=== PATIENT | male | born 1955 | race Caucasian/White ===

== ENCOUNTER 2024-05-14 13:19 | Inpatient (IN) ==
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
[2024-05-14 14:28] LABS: Basophils # (auto) 0.04 K/uL (0.00-0.20); Basophils % (auto) 0.2 %; Hematocrit (blood only) 37.3 % (42.0-52.0); Hemoglobin 12.8 g/dl (14.0-18.0); Immature Granulocytes # (auto) 0.56 K/uL (0.01-0.20); Immature Granulocytes % (auto) 2.7 %; Lymphocytes # (auto) 0.69 K/uL (1.20-3.40); Lymphocytes % (auto) 3.4 %; Mean Corpuscular Hemoglobin 31.1 pg (25.0-34.0); Mean Corpuscular Hgb Conc 34.3 g/dL (32.0-36.0); Mean Corpuscular Volume 90.8 fL (80.0-100.0); Mean Platelet Volume 10.6 fL (9.4-12.4); Monocytes % (auto) 9.7 %; Neutrophils # (auto) 17.23 K/uL (1.40-6.50); Platelet Count 168 K/uL (130-400); RDW Coefficient of Variation 12.7 % (11.5-14.5); RDW Standard Deviation 42.1 fL (36.4-46.3); Red Blood Count 4.11 M/uL (4.70-6.10); White Blood Count 20.52 K/ul (4.8-10.8)
[2024-05-14] MEDS: ACETAMINOPHEN 500 MG TAB PO STA (14:28)
[2024-05-14] MEDS: SODIUM CHLORIDE 0.9% 1,000 ML IV SCH ×2 (14:30→19:08)
--- NOTE | 2024-05-14 14:38 | XRay Report ---
SINGLE VIEW CHEST CLINICAL HISTORY: Generalized weakness. FINDINGS: An AP, portable, upright chest radiograph is obtained. No prior studies are available for c omparison at the time of dictation. The heart is enlarged noting atherosclerotic calcification of the thoracic aorta. There is pulmonary vascular congestion. Atelectasis is seen at the lung bases. No ai rspace consolidation or large pleural effusion is identified. No pneumothorax is seen. The skeletal s tructures are osteopenic. The bony thorax is grossly intact. IMPRESSION: Cardiomegaly with mild pulmonary vascular congestion. ACT 112: Negative or not required by law. Electronically signed by: Julián Rivera M.D. 05/14/2024 2:36 PM
[2024-05-14 14:51] LABS: Albumin Globulin Ratio 1.3 (0.9-2); Albumin Level 3.9 gm/dl (3.4-5.0); BUN Creatinine Ratio 17.8 (10-20); Bilirubin,Total 1.1 mg/dl (0.2-1.0); Calcium 9.8 mg/dl (8.6-10.3); Creatinine Clr Calc Pharmacy 28.8 ml/min; Est GFR (African American) 26.6 ml/min; Magnesium 1.8 mg/dl (1.7-2.4); Potassium 4.1 mmol/L (3.5-5.1); Total Protein 6.9 gm/dl (6.0-8.3)
[2024-05-14 15:03] LABS: Thyroid Stimulating Hormone 1.02 uIu/ml (0.300-4.500)
[2024-05-14 15:10] LABS: Adenovirus PCR Not Detected (NotDetected); Bordetella parapertussis PCR Not Detected (NotDetected); Bordetella pertussis PCR Not Detected (NotDetected); Chlamydia pneumoniae PCR Not Detected (NotDetected); Coronavirus 229E PCR Not Detected (NotDetected); Coronavirus CoV-2 (COVID19)PCR Not Detected (NotDetected); Coronavirus HKU1 PCR Not Detected (NotDetected); Coronavirus NL63 PCR Not Detected (NotDetected); Coronavirus OC43PCR Not Detected (NotDetected); Human Metapneumovirus PCR Not Detected (NotDetected); Influenza A PCR Not Detected (NotDetected); Influenza B PCR Not Detected (NotDetected); Mycoplasma pneumoniae PCR Not Detected (NotDetected); Parainfluenza Virus 1 PCR Not Detected (NotDetected); Parainfluenza Virus 2 PCR Not Detected (NotDetected); Parainfluenza Virus 3 PCR Not Detected (NotDetected); Parainfluenza Virus 4 PCR Not Detected (NotDetected); Respiratory Syncytial VirusPCR Not Detected (NotDetected); Rhinovirus/Enterovirus PCR Not Detected (NotDetected)
[2024-05-14] MEDS: SODIUM CHLORIDE 0.9% 500 ML IV ONE (15:47)
[2024-05-14 15:49] LABS: Appearance Urine Turbid (Clear); Bacteria Urine Automated 4+ (None Seen); Bilirubin Urine Negative (Negative); Blood Urine 3+ (Negative); Cast Urine Automated >20 /lpf (0-2); Color Urine Dark Yellow; Glucose Urine UA Negative (Negative); Hyaline Casts Urine Present /lpf (None Presnt); Ketones Urine Trace (Negative); Leukocyte Esterase Urine 3+ (Negative); Nitrite Urine Negative (Negative); Protein Urine 2+ (Negative); Urobilinogen Urine Negative (Negative); WBC Urine Automated >50 /hpf (0-5); White Blood Cell Casts Urine Present /lpf (None Prsent)
[2024-05-14] MEDS: PIPERACILLIN/TAZOBACTAM 4.5 GM/100 ML BAG IV ONE (15:49)
--- NOTE | 2024-05-14 16:58 | Electrocardiogram Report ---
Test Reason : Blood Pressure : */* mmHG Vent. Rate : 78 BPM Atrial Rate : 78 BPM P-R Int : 160 ms QRS Dur : 94 ms QT Int : 392 ms P-R-T Axes : 87 -6 58 degrees QTcB Int : 446 ms Normal sinus rhythm Nonspecific T wave abnormality Abnormal ECG No previous ECGs available Confirmed by Reno Ibarra ([id number]) on 05/14/2024 4:58:18 PM Referred By: REFERRED SELF Confirmed By: Reno Ibarra
--- NOTE | 2024-05-14 16:58 | CT Scan Report ---
CT abd pelvis wo con CLINICAL HISTORY: BALDOMERO TECHNIQUE: Helical axial images of the abdomen and pelvis were obtained. Automated dose lowering tech niques and/or adjustment according to patient size were utilized for this exam. This exam was perfor med without intravenous contrast. CT DOSE: 1332.43 mGy.cm COMPARISON: Comparison is made to CT pelvis 05/22/[address] abdomen pelvis 05/22/2023 FINDINGS: Lower chest: Bibasilar atelectasis versus scarring is seen. Liver: Hepatic steatosis is noted. Gallbladder and biliary tree: The gallbladder is contracted. No intra- or extrahepatic biliary ductal dilation. Pancreas: Unremarkable, no focal lesions. Spleen: Unremarkable. Adrenals: Unremarkable. Kidneys and ureters: Bilateral renal cysts are seen. Perinephric stranding is seen. There is no hydro nephrosis. Bladder: Limited evaluation due to underdistention. Reproductive organs: Prostatomegaly is seen. Metallic markers are noted within the prostate. The appe ndix is unremarkable. Bowel: Unremarkable. Lymph nodes Retroperitoneal: Unremarkable. Pelvic: Unremarkable. Mesenteric: Unremarkable. Peritoneum: Normal. Vessels: Unremarkable. Abdominal wall: A fat-containing umbilical hernia is seen. Bilateral fat-containing inguinal hernias are seen. Bones: Degenerative changes in the visualized spine. Lucency in the T10 vertebral body is nonspecific and may represent a hemangioma, is unchanged from 202. IMPRESSION: 1. Perinephric stranding and stranding about the bladder. No evidence of hydronephrosis. Clinical co rrelation for infectious process is recommended. 2. Hepatic steatosis. ACT 112: Negative or not required by law. Electronically signed by: Luis Hudson M.D. 05/14/2024 4:56 PM
[2024-05-14] MEDS: SODIUM CHLORIDE 0.9% 1,000 ML IV ONE (17:09)
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
[2024-05-14] MEDS ORDERED: CARBOHYDRATES FOR HYPOGLYCEMIA PO PRN (18:02)
[2024-05-14] MEDS ORDERED: DEXTROSE 50% 50 ML SYRINGE IV PRN (18:02)
[2024-05-14] MEDS ORDERED: FLUTICASONE/VILANTEROL 100/25MCG 14 PUFFS/INHALER INH PRN (18:02)
[2024-05-14] MEDS ORDERED: GLUCOSE 40% GEL 15 GM TUBE PO PRN (18:02)
[2024-05-14] MEDS ORDERED: POLYETHYLENE (MIRALAX) 17 GM PACK PO PRN (18:02)
[2024-05-14] MEDS ORDERED: GLUCAGON FOR INJ 1 MG VIAL SQ PRN (18:02)
[2024-05-14] MEDS ORDERED: GLUCOSE 10 TAB/TUBE PO PRN (18:02)
[2024-05-14] MEDS ORDERED: ONDANSETRON INJ 2 MG/ML 2 ML VIAL IV PRN (18:02)
[2024-05-14] MEDS ORDERED: PHARMACY GLYCEMIC MGMT CONSULT PRN (18:02)
[2024-05-14] MEDS: LEVALBUTEROL HCL 0.63 MG/3 ML NEB NEB STA (18:22)
[2024-05-14] MEDS: SODIUM CHLORIDE 0.9% 250 ML IV ONE (18:23)
[2024-05-14] MEDS ORDERED: ALBUTEROL 0.083% NEBU SOLN 3 ML VIAL INH PRN (18:26)
[2024-05-14] MEDS: methylPREDNISolone 60 MG in SYRINGE 0 ML IV ONE (19:09)
[2024-05-14] MEDS: DAPTOmycin 450 MG in SYRINGE 0 ML IV SCH (19:09)
[2024-05-14] MEDS: LEVALBUTEROL HCL 0.63 MG/3 ML NEB NEB SCH (19:19)
[2024-05-14] MEDS: IPRATROPIUM BROMIDE NEB SOLN 0.02% 0.5MG/2.5ML VIAL NEB SCH (19:19)
[2024-05-14] MEDS: INSULIN ASPART PER UNIT CHARGE SC SCH (19:20)
[2024-05-14] MEDS: INSULIN ASPART PER UNIT CHARGE SC STA (19:25)
[2024-05-14] MEDS ORDERED: hydrALAZINE HCL 20 MG/ML VIAL IV PRN (19:46)
[2024-05-14] MEDS: PRAZOSIN HCL 1 MG CAP PO SCH (20:27)
[2024-05-14] MEDS: HEPARIN SOD 5,000 UNIT/0.5 ML VIAL SQ SCH (20:27)
[2024-05-14] MEDS: ACETAMINOPHEN 325 MG TAB PO PRN (20:27)
[2024-05-14] MEDS: CETIRIZINE HCL 10 MG TABLET PO SCH (20:27)
[2024-05-14] MEDS ORDERED: INSULIN ASPART PER UNIT CHARGE SC SCH (21:00)
[2024-05-14] MEDS: PIPERACILLIN/TAZOBACTAM 4.5 GM in DEXTROSE 5% MINI-B 100 ML IV SCH (22:45)
[2024-05-15] MEDS: methylPREDNISolone 40 MG in SYRINGE 0 ML IV SCH ×2 (02:00→20:25)
[2024-05-15 07:35] LABS: Basophils # (auto) 0.03 K/uL (0.00-0.20); Basophils % (auto) 0.2 %; Hematocrit (blood only) 34.6 % (42.0-52.0); Hemoglobin 11.8 g/dl (14.0-18.0); Immature Granulocytes # (auto) 0.64 K/uL (0.01-0.20); Immature Granulocytes % (auto) 3.8 %; Lymphocytes # (auto) 0.31 K/uL (1.20-3.40); Lymphocytes % (auto) 1.9 %; Mean Corpuscular Hemoglobin 31.1 pg (25.0-34.0); Mean Corpuscular Hgb Conc 34.1 g/dL (32.0-36.0); Mean Corpuscular Volume 91.1 fL (80.0-100.0); Mean Platelet Volume 10.7 fL (9.4-12.4); Monocytes # (auto) 0.73 K/uL (0.11-0.59); Monocytes % (auto) 4.4 %; Neutrophils # (auto) 15.02 K/uL (1.40-6.50); Neutrophils % (auto) 89.7 %; Platelet Count 125 K/uL (130-400); RDW Coefficient of Variation 12.7 % (11.5-14.5); RDW Standard Deviation 41.5 fL (36.4-46.3); White Blood Count 16.73 K/ul (4.8-10.8)
[2024-05-15] MEDS: allopurinoL 300 MG TAB PO SCH (07:58)
[2024-05-15] MEDS: CHOLECALCIFEROL 25 MCG (1000 UNITS) TAB PO SCH (07:58)
[2024-05-15] MEDS: FLUTICASONE/VILANTEROL 100/25MCG 14 PUFFS/INHALER INH SCH (07:59)
[2024-05-15] MEDS: VITAMIN B COMPLEX TAB PO SCH (07:59)
[2024-05-15 08:06] LABS: Estimated Average Glucose 157 mg/dl; Hemoglobin A1C 7.1 % (4.5-5.6)
--- NOTE | 2024-05-15 08:23 | Hospitalist Progress Note ---
Date of Service May 15, 2024 Assessment & Plan (1) UTI (urinary tract infection): (2) Severe sepsis: (3) Acute kidney injury: (4) Rhabdomyolysis: Plan Abdias Damon is a 68y/o M with PMHx significant for DM type II, HTN, hyperlipidemia, COPD, degenerative joint disease, BPH, history of prostate cancer, osteoarthritis and history of gout who presented to the ED for evaluation secondary to illness. Patient presenting with increasing weakness, fatigue, body aches/chills, fever and an episode of urinary continence over the past 24 hours. He was found to have an acute UTI and severe sepsis on presentation. Of note, patient had a left leg ablation performed on 05/13 at [facility]. Severe Sepsis Bacteremia Complicated Urinary tract Infection History of Prostate Cancer Meets severe sepsis criteria on admission 2/2 tachycardia, tachypnea, leukocytosis, present source of infection & lactic acidosis. Admitting labs significant for WBC 20K, lactate 3.3 and procalcitonin 72. UA suggestive of infection, urine Cx growing gram negative bacilli currently Blood Cx 1/2 bottles growing gram negative bacilli Biofire negative CXR showing cardiomegaly with mild pulmonary vascular congestion. CT Abd/pelvis showing perinephric stranding and stranding about the bladder, no evidence of hydronephrosis and hepatic steatosis. MRSA nares negative Continue IV Zosyn only at this time IV fluids Follow Cx and narrow Continue to monitor Shortness of Breath & Cough Asthma & Chronic Obstructive Pulmonary Disease with Exacerbation Patient w/ some SOB and nonproductive cough at time of admission. He was saturating well on RA at 94-98% SpO2 CXR no pneumonia Biofire negative Physical exam notable for some bilateral wheezing. Scheduled nebs and IV Solu-Medrol 40mg Q8H on admission Wean down steroids as tolerated Home inhalers Azithromycin 500mg x 3 doses Continue to monitor Acute Kidney Injury Cr 2.69 & BUN 48 on admission; baseline Cr ~1.0 IV Fluids Avoid nephrotoxic medications when able. Cr increasing Nephrology consulted, appreciate recs -IVF Rhabdomyolysis Patient presenting w/ body aches and weakness. He was also lying on the ground for 3-4 hours at home after sliding off of his bed. CK 262 on admission. IVF replacement Trend CK Continue to monitor Acute Hyperglycemia Diabetes Mellitus Type II [Not Insulin-Dependent] Glucose 322 and anion gap 12 on arrival. hgba1c of 7.1 Given 8 units of insulin aspart in the ED. Holding BILLING REPRESENTATIVE diabetic medications Basal/bolus insulin while hospitalized Glycemic pharmacy consult as pt also on steroids, appreciate recs Hyponatremia Noted on admission at 131 Consider urine osm and electrolytes for further workup Nephrology on board as above Anemia Thrombocytopenia Mild Continue to monitor Hypertension BP has been on the lower end on admission Given severe sepsis and concern for septic shock, hold BILLING REPRESENTATIVE antihypertensives Continue to monitor Dyslipidemia Patient on both statin and ASA therapy BILLING REPRESENTATIVE. Continue History of Prostate Cancer Patient underwent Rezum procedure on 03/31/2023 due to severe bladder outlet obstruction and subsequently completed treatment with radiation oncology. Patient finished radiation therapy in the fall of 2022. He follows closely w/ [facility]. Patient is currently under PSA monitoring regimen. Other Chronic Medical Conditions: History of gout, BPH and season allergies --> Can continue BILLING REPRESENTATIVE medications for these specific conditions. Diet: DMII DVT Prophylaxis: SQ Heparin Dispo: PT/OT ordered for further recs Admission and Anticipated Discharge Date Admission Date: May 14, 2024 Subjective pt was seen laying in bed. ill-appearing. States slight improvement in his symptoms. Feels very tired. Review of Systems Review of Systems: All systems reviewed & are unremarkable except as noted in Subjective Physical Exam Physical Exam: General: Alert, oriented. ill-appearing Psych: Appropriate mood and affect Neuro: No gross deficits HEENT: NC/AT CV: RRR Resp: Breath sounds clear bilaterally, no increased effort of breathing. Abdomen: Soft, nontender, nondistended. Extremities: Trace edema in lower extremities bilaterally. Results & Data Results & Data Vital Signs (Past 12 Hours) Vital Signs Temp Pulse Pulse Resp BP BP Pulse Ox 05/15/24 07:35 36.5 C 61 20 114/67 99 05/15/24 07:28 71 16 93 05/15/24 07:09 61 05/15/24 03:20 36.6 C 62 20 128/81 95 05/15/24 00:25 71 18 96 05/14/24 23:39 37.4 C 64 20 103/64 92 05/14/24 22:05 73 05/14/24 21:30 05/14/24 21:30 36.4 C L 77 22 114/63 95 05/14/24 21:20 77 O2 Del Method 05/15/24 07:35 Nebulizer 05/15/24 07:28 Room Air 05/15/24 07:09 05/15/24 03:20 Room Air 05/15/24 00:25 Room Air 05/14/24 23:39 Room Air 05/14/24 22:05 05/14/24 21:30 Room Air 05/14/24 21:30 Room Air 05/14/24 21:20 Diagnostic Findings Chest X-Ray 05/14/24 14:03 SINGLE VIEW CHEST CLINICAL HISTORY: Generalized weakness. FINDINGS: An AP, portable, upright chest radiograph is obtained. No prior studies are available for comparison at the time of dictation. The heart is en larged noting atherosclerotic calcification of the thoracic aorta. There is pulmonary vascular congestion. Atelectasis is seen at the lung bases. No airspace consolidation or large pleural effusion is identified. No pneumothorax is seen. The skeletal structures are osteopenic. The bony thorax is grossly intact. IMPRESSION: Cardiomegaly with mild pulmonary vascular congestion. ACT 112: Negative or not required by law. Electronically signed by: Julián Rivera M.D. 05/14/2024 2:36 PM Abdomen/Pelvis CT 05/14/24 15:38 CT abd pelvis wo con CLINICAL HISTORY: BALDOMERO TECHNIQUE: Helical axial images of the abdomen and pelvis were obtained. Automated dose lowering techniques and/or adjustment according to patient size were utilized for this exam. This exam was performed without intravenous contrast. CT DOSE: 1332.43 mGy.cm COMPARISON: Comparison is made to CT pelvis 05/22/[address] abdomen pelvis 05/22/2023 FINDINGS: Lower chest: Bibasilar atelectasis versus scarring is seen. Liver: Hepatic steatosis is noted. Gallbladder and biliary tree: The gallbladder is contracted. No intra- or extrahepatic biliary ductal dilation. Pancreas: Unremarkable, no focal lesions. Spleen: Unremarkable. Adrenals: Unremarkable. Kidneys and ureters: Bilateral renal cysts are seen. Perinephric stranding is seen. There is no hydronephrosis. Bladder: Limited evaluation due to underdistention. Reproductive organs: Prostatomegaly is seen. Metallic markers are noted within the prostate. The appendix is unremarkable. Bowel: Unremarkable. Lymph nodes Retroperitoneal: Unremarkable. Pelvic: Unremarkable. Mesenteric: Unremarkable. Peritoneum: Normal. Vessels: Unremarkable. Abdominal wall: A fat-containing umbilical hernia is seen. Bilateral fat- containing inguinal hernias are seen. Bones: Degenerative changes in the visualized spine. Lucency in the T10 vertebral body is nonspecific and may represent a hemangioma, is unchanged from 2021. IMPRESSION: 1. Perinephric stranding and stranding about the bladder. No evidence of hydronephrosis. Clinical correlation for infectious process is recommended. 2. Hepatic steatosis. ACT 112: Negative or not required by law. Electronically signed by: Luis Hudson M.D. 05/14/2024 4:56 PM (1) UTI (urinary tract infection) Hematuria presence: without hematuria Urinary tract infection type: site unspecified Qualified Code(s): N39.0 - Urinary tract infection, site not specified (4) Rhabdomyolysis Rhabdomyolysis type: non-traumatic Qualified Code(s): M62.82 - Rhabdomyolysis
[2024-05-15 08:29] LABS: Albumin Globulin Ratio 1.1 (0.9-2); Albumin Level 3.2 gm/dl (3.4-5.0); BUN Creatinine Ratio 19.7 (10-20); Bilirubin,Total 0.8 mg/dl (0.2-1.0); Calcium 8.4 mg/dl (8.6-10.3); Creatinine Clr Calc Pharmacy 28.1 ml/min; Est GFR (African American) 25.5 ml/min; Globulin 2.8 gm/dl (2.5-4.0); Magnesium 1.9 mg/dl (1.7-2.4); Phosphorus 3.6 mg/dl (2.5-4.9)
[2024-05-15] MEDS: LANTUS PER UNIT CHARGE SC ONE ×2 (09:22→12:04)
[2024-05-15] MEDS: ASPIRIN 81 MG ECTAB PO SCH (10:07)
[2024-05-15] MEDS: INSULIN HUMAN REGULAR PER UNIT 9 UNITS in SYRINGE 8.91 ML IV ONE (12:04)
[2024-05-15 12:39] LABS: A calco-baum cmplx NotReported Not Detected (NotDetected); Bact fragilis Not Reported Not Detected (NotDetected); Blood Culture Id Panel See PCR Comment (NotDetected); C auris Not Reported Not Detected (NotDetected); CTX-M Resistant Gene Not Detected (NotDetected); Calbicans Not Reported Not Detected (NotDetected); Candida glabrata Not Reported Not Detected (NotDetected); Candida krusei Not Reported Not Detected (NotDetected); Cneoformans/gatti Not Reported Not Detected (NotDetected); Cparapsilosis Not Reported Not Detected (NotDetected); E cloacae compx Not Reported Not Detected (NotDetected); Efaecalis Not Reported Not Detected (NotDetected); Efaecium Not Reported Not Detected (NotDetected); Enterobacterales DETECTED (NotDetected); Enterobacterales Not Reported DETECTED (NotDetected); Escherichia coli Not Reported DETECTED (NotDetected); H influenzae Not Reported Not Detected (NotDetected); IMP Resistant Gene Not Detected (NotDetected); K aerogenes Not Reported Not Detected (NotDetected); KPC Resistant Gene Not Detected (NotDetected); Koxytoca Not Reported Not Detected (NotDetected); Kpneumoniae grp Not Reported Not Detected (NotDetected); Lmonocyt Not Reported Not Detected (NotDetected); N meningitidis Not Reported Not Detected (NotDetected); NDM Resistant Gene Not Detected (NotDetected); OXA 48 Like Resistant Gene Not Detected (NotDetected); P aeruginosa Not Reported Not Detected (NotDetected); Proteus spp Not Reported Not Detected (NotDetected); Salmonella spp Not Reported Not Detected (NotDetected); Staph lugdunensis Not Reported Not Detected (NotDetected); Staph spp. Not Reported Not Detected (NotDetected); Staphaureus Not Reported Not Detected (NotDetected); Staphepi Not Reported Not Detected (NotDetected); Stenmaltophilia Not Reported Not Detected (NotDetected); Strep agal(GrpB) Not Reported Not Detected (NotDetected); Strep pneum Not Reported Not Detected (NotDetected); Strep pyog (GrpA) Not Reported Not Detected (NotDetected); Strep spp Not Reported Not Detected (NotDetected); VIM Resistant Gene Not Detected (NotDetected); mcr-1 Colistin Resistant Gene Not Detected (NotDetected)
--- NOTE | 2024-05-15 13:20 | Pharmacy Report ---
Pharmacy Glycemic Short Note 2 - Date of Service May 15, 2024 - Glycemic Short BSG Results (Last 24 hours): 05/14/24 05/14/24 05/14/24 13:47 19:14 21:24 Glucose 322 H* POC Glucose 210 H 162 H 05/15/24 05/15/24 05/15/24 07:18 08:00 08:01 Glucose 328 H* POC Glucose 358 H* 316 H* 05/15/24 05/15/24 11:35 11:36 Glucose POC Glucose 476 H* 452 H* OUTPATIENT ANTIDIABETIC REGIMEN: * Metformin 1000 mg PO BIDM * Repaglinide 0.5 mg PO TIDM HbA1c: 7.1% (12/17/22) ASSESSMENT: * WL is a 68 year old male with presumed urosepsis (receiving Zosyn) * Patient hyperglycemic today, likely related to uncovered IV steroid administration last evening * Ordered methylprednisolone 40 mg IV BID at this time * Will utilize weight-based basal and aggressive Novolog parameters * Blood sugar of 452 mg/dL at lunch -> will give one-time IV insulin bolus PLAN FOR INPATIENT GLYCEMIC CONTROL: * Hold outpatient oral diabetes medications * Basal insulin * Lantus 35 units SC today * Reassess in AM * Bolus insulin * NovoLog per scale ACHS or Q6hrs while NPO * Goal Range: Low 110 mg/dL - High 140 mg/dL * Correction Factor: 15 mg/dL/unit * Nutritional / Prandial insulin per carb ratio of 1 unit per 5 grams CHO consumed
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
[2024-05-15] MEDS: AZITHROMYCIN 250 MG TAB PO SCH (13:53)
[2024-05-15] MEDS: SODIUM CHLORIDE 0.9% 1,000 ML IV SCH (16:28)
[2024-05-15] MEDS: ROSUVASTATIN CALCIUM 10 MG TAB PO SCH (20:25)
[2024-05-16] MEDS: INSULIN ASPART PER UNIT CHARGE SC SCH (00:04)
[2024-05-16 07:22] LABS: Hematocrit (blood only) 33.4 % (42.0-52.0); Hemoglobin 11.8 g/dl (14.0-18.0); Mean Corpuscular Hemoglobin 31.1 pg (25.0-34.0); Mean Corpuscular Hgb Conc 35.3 g/dL (32.0-36.0); Mean Corpuscular Volume 88.1 fL (80.0-100.0); Mean Platelet Volume 11.3 fL (9.4-12.4); Platelet Count 160 K/uL (130-400); RDW Coefficient of Variation 12.5 % (11.5-14.5); RDW Standard Deviation 40.3 fL (36.4-46.3); Red Blood Count 3.79 M/uL (4.70-6.10); White Blood Count 19.64 K/ul (4.8-10.8)
[2024-05-16 07:32] LABS: Albumin Globulin Ratio 1.1 (0.9-2); Albumin Level 3.1 gm/dl (3.4-5.0); BUN Creatinine Ratio 28.1 (10-20); Bilirubin,Total 0.5 mg/dl (0.2-1.0); Calcium 8.3 mg/dl (8.6-10.3); Creatinine Clr Calc Pharmacy 37.6 ml/min; Est GFR (African American) 35.9 ml/min; Globulin 2.9 gm/dl (2.5-4.0); Magnesium 2.1 mg/dl (1.7-2.4); Phosphorus 2.4 mg/dl (2.5-4.9); Potassium 3.4 mmol/L (3.5-5.1)
[2024-05-16 08:08] LABS: Basophils # (auto) 0.03 K/uL (0.00-0.20); Basophils % (auto) 0.2 %; Immature Granulocytes # (auto) 0.27 K/uL (0.01-0.20); Immature Granulocytes % (auto) 1.4 %; Lymphocytes # (auto) 0.45 K/uL (1.20-3.40); Lymphocytes % (auto) 2.3 %; Monocytes # (auto) 1.07 K/uL (0.11-0.59); Monocytes % (auto) 5.4 %; Neutrophils # (auto) 17.82 K/uL (1.40-6.50); Neutrophils % (auto) 90.7 %
[2024-05-16] MEDS: CEFEPIME 2,000 MG in SYRINGE 0 ML IV SCH (08:15)
[2024-05-16] MEDS ORDERED: LANTUS PER UNIT CHARGE SC SCH (09:00)
[2024-05-16] MEDS: LANTUS PER UNIT CHARGE SC SCH ×2 (09:05→20:45)
[2024-05-16] MEDS: POT PHOSPHATE MONOBASIC W/ SOD TAB PO STA (09:20)
[2024-05-16] MEDS: POTASSIUM CHLORIDE CRTAB 20 MEQ TABCR PO STA (09:20)
--- NOTE | 2024-05-16 10:52 | Hospitalist Progress Note ---
Date of Service May 16, 2024 Assessment & Plan (1) UTI (urinary tract infection): (2) Severe sepsis: (3) Acute kidney injury: (4) Rhabdomyolysis: Plan Abdias Damon is a 68y/o M with PMHx significant for DM type II, HTN, hyperlipidemia, COPD, degenerative joint disease, BPH, history of prostate cancer, osteoarthritis and history of gout who presented to the ED for evaluation secondary to illness. Patient presenting with increasing weakness, fatigue, body aches/chills, fever and an episode of urinary continence over the past 24 hours. He was found to have an acute UTI and severe sepsis on presentation. Of note, patient had a left leg ablation performed on 05/13 at [facility] [place] [facility]. Severe Sepsis Bacteremia Complicated Urinary tract Infection History of Prostate Cancer Meets severe sepsis criteria on admission 2/2 tachycardia, tachypnea, leukocytosis, present source of infection & lactic acidosis. Admitting labs significant for WBC 20K, lactate 3.3 and procalcitonin 72. UA suggestive of infection, urine Cx growing E coli currently Blood Cx 1/2 bottles growing gram negative bacilli Biofire negative CXR showing cardiomegaly with mild pulmonary vascular congestion. CT Abd/pelvis showing perinephric stranding and stranding about the bladder, no evidence of hydronephrosis and hepatic steatosis. MRSA nares negative Treated with IV Zosyn, transitioned to IV Cefepime based on culture results IV fluids Follow Cultures and narrow Continue to monitor Improving Shortness of Breath & Cough Asthma & Chronic Obstructive Pulmonary Disease with Exacerbation Patient w/ some SOB and nonproductive cough at time of admission. He was saturating well on RA at 94-98% SpO2 CXR no pneumonia Biofire negative Physical exam notable for some bilateral wheezing. Scheduled nebs and IV Solu-Medrol 40mg Q8H on admission Wean down steroids as tolerated, transitioned to po prednisone 40mg daily x 5 days Home inhalers Azithromycin 500mg x 3 doses Continue to monitor improving Acute Kidney Injury Cr 2.69 & BUN 48 on admission; baseline Cr ~1.0 IV Fluids Avoid nephrotoxic medications when able. Nephrology consulted, appreciate recs -IVF Improving Rhabdomyolysis Patient presenting w/ body aches and weakness. He was also lying on the ground for 3-4 hours at home after sliding off of his bed. CK 262 on admission. IVF replacement Trend CK Continue to monitor Currently normal/resolved Acute Hyperglycemia Diabetes Mellitus Type II [Not Insulin-Dependent] Glucose 322 and anion gap 12 on arrival. hgba1c of 7.1 Given 8 units of insulin aspart in the ED. Holding SHELLFISH MANAGER diabetic medications Basal/bolus insulin while hospitalized Glycemic pharmacy consult as pt also on steroids, appreciate recs Hyponatremia Noted on admission at 131 Consider urine osm and electrolytes for further workup Nephrology on board as above Currently resolved Anemia Thrombocytopenia Mild thrombocytopenia resolved Continue to monitor Hypertension BP has been on the lower end on admission Given severe sepsis and concern for septic shock, hold SHELLFISH MANAGER antihypertensives Continue to monitor Dyslipidemia Patient on both statin and ASA therapy SHELLFISH MANAGER. Continue History of Prostate Cancer Patient underwent Rezum procedure on 03/31/2023 due to severe bladder outlet obstruction and subsequently completed treatment with radiation oncology. Patient finished radiation therapy in the fall of 2022. He follows closely w/ [facility]. Patient is currently under PSA monitoring regimen. Other Chronic Medical Conditions: History of gout, BPH and season allergies --> Can continue SHELLFISH MANAGER medications for these specific conditions. Diet: DMII DVT Prophylaxis: SQ Heparin Dispo: PT/OT ordered for further recs Admission and Anticipated Discharge Date Admission Date: May 14, 2024 Subjective pt was seen laying in bed. States he feels much better. Denies N/V, abdominal pain, fevers, chills or night sweats. Review of Systems Review of Systems: All systems reviewed & are unremarkable except as noted in Subjective Physical Exam Physical Exam: General: Alert, oriented. Psych: Appropriate mood and affect Neuro: No gross deficits HEENT: NC/AT CV: RRR Resp: Breath sounds clear bilaterally, no increased effort of breathing. Abdomen: Soft, nontender, nondistended. Extremities: Trace edema in lower extremities bilaterally. Results & Data Results & Data Vital Signs (Past 12 Hours) Vital Signs Temp Pulse Pulse Resp BP BP Pulse Ox 05/16/24 09:00 05/16/24 07:34 36.4 C L 63 18 148/70 H 99 05/16/24 07:00 55 L 05/16/24 04:03 36.5 C 57 L 20 166/90 H 96 05/15/24 23:48 36.5 C 56 L 20 148/80 H 96 O2 Del Method 05/16/24 09:00 Room Air 05/16/24 07:34 Room Air 05/16/24 07:00 05/16/24 04:03 Room Air 05/15/24 23:48 Room Air (1) UTI (urinary tract infection) Hematuria presence: without hematuria Urinary tract infection type: site unspecified Qualified Code(s): N39.0 - Urinary tract infection, site not specified (4) Rhabdomyolysis Rhabdomyolysis type: non-traumatic Qualified Code(s): M62.82 - Rhabdomyolysis
--- NOTE | 2024-05-16 12:10 | Nephrology Progress Note ---
Date of Service May 16, 2024 Assessment & Plan (1) Acute kidney injury: Plan: Patient with acute kidney injury due to ischemic ATN in setting of sepsis. Creatinine of 2.1 today from 2.79 yesterday and a baseline of 1.2 last year. Electrolytes are stable and no signs of volume overload. Agree with continuing fluids at rate of 80ml/hr. low threshold to stop fluids if signs of dyspnea or orthopnea. Avoid nephrotoxins. Renally dose antibiotics (2) UTI (urinary tract infection): Plan: Continue cefepime per primary team. urine cultures showing E.coli. CT abdomen showed no evidence of pyonephritis. (3) HTN (hypertension): Plan: Will resume prazosin. Avoid hypotension while still recovering from the ATN. Admission and Anticipated Discharge Date Admission Date: May 14, 2024 Subjective Seen for BALDOMERO. He feels better. No SOB. making urine and creatinine down trending. Review of Systems 2 Review of Systems: All other systems were reviewed and negative except as noted in HPI Physical Exam 2 Physical Exam: General exam: Appears comfortable, no acute distress HEENT: Pupils are equal and reactive to light Neck: No JVD, neck is supple trachea is midline Respiratory system: Clear breath sounds bilaterally. Gastrointestinal: Abdomen is soft, non distended, non tender, bowel sounds are present CVS: Regular rate and rhythm. No murmurs, rubs or gallops Musculoskeletal: No joint or muscle tenderness Extremities: Non tender, no edema, peripheral pulses are present Neuro: Oriented, no tremors, no focal neurological deficits Skin: No rashes Results & Data Vital Signs (Past 12 Hours) Vital Signs Temp Pulse Pulse Resp BP BP Pulse Ox 05/16/24 11:40 36.8 C 54 L 18 162/76 H 96 05/16/24 09:00 05/16/24 07:34 36.4 C L 63 18 148/70 H 99 05/16/24 07:00 55 L 05/16/24 04:03 36.5 C 57 L 20 166/90 H 96 O2 Del Method 05/16/24 11:40 Room Air 05/16/24 09:00 Room Air 05/16/24 07:34 Room Air 05/16/24 07:00 05/16/24 04:03 Room Air Laboratory Results 05/16/24 06:32 05/16/24 06:32 WBC 19.64 H RBC 3.79 L MCV 88.1 MCH 31.1 MCHC 35.3 RDW Std Deviation 40.3 RDW Coeff of Leslie 12.5 Plt Count 160 MPV 11.3 Phosphorus 2.4 L D Albumin 3.1 L (2) UTI (urinary tract infection) Urinary tract infection type: site unspecified Hematuria presence: without hematuria Qualified Code(s): N39.0 - Urinary tract infection, site not specified
[2024-05-16] MEDS: LOSARTAN POTASSIUM 50 MG TAB PO SCH (17:19)
[2024-05-16] MEDS: LABETALOL HCL IV 5 MG/ML 20ML IV STA (19:46)
[2024-05-16] MEDS: hydrALAZINE HCL 20 MG/ML VIAL IV STA (19:51)
[2024-05-16] MEDS: VERAPAMIL HCL 240 MG TABCR PO SCH (20:45)
[2024-05-17 06:26] LABS: Basophils # (auto) 0.03 K/uL (0.00-0.20); Basophils % (auto) 0.2 %; Hematocrit (blood only) 35.2 % (42.0-52.0); Hemoglobin 12.2 g/dl (14.0-18.0); Immature Granulocytes # (auto) 0.32 K/uL (0.01-0.20); Immature Granulocytes % (auto) 2.2 %; Lymphocytes # (auto) 0.56 K/uL (1.20-3.40); Lymphocytes % (auto) 3.9 %; Mean Corpuscular Hemoglobin 31.3 pg (25.0-34.0); Mean Corpuscular Hgb Conc 34.7 g/dL (32.0-36.0); Mean Corpuscular Volume 90.3 fL (80.0-100.0); Mean Platelet Volume 10.6 fL (9.4-12.4); Monocytes # (auto) 1.21 K/uL (0.11-0.59); Monocytes % (auto) 8.5 %; Neutrophils # (auto) 12.16 K/uL (1.40-6.50); Neutrophils % (auto) 85.2 %; Platelet Count 149 K/uL (130-400); RDW Coefficient of Variation 12.9 % (11.5-14.5); RDW Standard Deviation 42.4 fL (36.4-46.3); White Blood Count 14.28 K/ul (4.8-10.8)
--- NOTE | 2024-05-17 06:43 | XRay Report ---
XR chest 1V portable CLINICAL HISTORY: sob TECHNIQUE: Single frontal radiograph of the chest was obtained. Comparison: Comparison is made to chest radiograph 05/14/2024 FINDINGS: No lines and tubes are seen. Cardiomegaly is noted. The lungs are clear. No evidence of pleural effus ion or pneumothorax. IMPRESSION: No acute chest disease. ACT 112: Negative or not required by law. Electronically signed by: Luis Hudson M.D. 05/17/2024 6:41 AM
[2024-05-17 07:05] LABS: Albumin Level 2.9 gm/dl (3.4-5.0); BUN Creatinine Ratio 23.5 (10-20); Bilirubin,Total 0.5 mg/dl (0.2-1.0); Calcium 8.2 mg/dl (8.6-10.3); Creatinine Clr Calc Pharmacy 34.9 ml/min; Est GFR (African American) 32.1 ml/min; Est GFR (Non-African American) 27.7 ml/min; Globulin 2.8 gm/dl (2.5-4.0); Magnesium 1.9 mg/dl (1.7-2.4); Phosphorus 2.6 mg/dl (2.5-4.9); Potassium 3.1 mmol/L (3.5-5.1); Total Protein 5.7 gm/dl (6.0-8.3)
[2024-05-17] MEDS: POTASSIUM CHLORIDE CRTAB 20 MEQ TABCR PO STA (08:27)
[2024-05-17] MEDS: TRIAMTERENE/HCTZ 37.5/25MG TAB PO SCH (08:27)
[2024-05-17] MEDS: predniSONE 20 MG TAB PO SCH (08:28)
--- NOTE | 2024-05-17 08:53 | Hospitalist Progress Note ---
Date of Service May 17, 2024 Assessment & Plan (1) UTI (urinary tract infection): (2) Severe sepsis: (3) Acute kidney injury: (4) Rhabdomyolysis: Plan Abdias Damon is a 68y/o M with PMHx significant for DM type II, HTN, hyperlipidemia, COPD, degenerative joint disease, BPH, history of prostate cancer, osteoarthritis and history of gout who presented to the ED for evaluation secondary to illness. Patient presenting with increasing weakness, fatigue, body aches/chills, fever and an episode of urinary continence over the past 24 hours. He was found to have an acute UTI and severe sepsis on presentation. Of note, patient had a left leg ablation performed on 05/13 at [facility]. Severe Sepsis Bacteremia Complicated Urinary tract Infection History of Prostate Cancer Meets severe sepsis criteria on admission 2/2 tachycardia, tachypnea, leukocytosis, present source of infection & lactic acidosis. Admitting labs significant for WBC 20K, lactate 3.3 and procalcitonin 72. UA suggestive of infection, urine Cx growing E coli currently Blood Cx 1/2 bottles growing E coli as well Biofire negative CXR showing cardiomegaly with mild pulmonary vascular congestion. CT Abd/pelvis showing perinephric stranding and stranding about the bladder, no evidence of hydronephrosis and hepatic steatosis. MRSA nares negative Treated with IV Zosyn--> IV Cefepime---> IV rocephin IV fluids Will discharge to complete 14 day course with susceptible po antibiotic. Improving Shortness of Breath & Cough Asthma & Chronic Obstructive Pulmonary Disease with Exacerbation Patient w/ some SOB and nonproductive cough at time of admission. He was saturating well on RA at 94-98% SpO2 CXR no pneumonia, repeat chest xray on 05/16 unremarkable Biofire negative Physical exam notable for some bilateral wheezing. Scheduled nebs and IV Solu-Medrol 40mg Q8H on admission Wean down steroids as tolerated, transitioned to po prednisone 40mg daily x 5 days Home inhalers Azithromycin 500mg x 3 doses PRN cough meds Continue to monitor improving Acute Kidney Injury Cr 2.69 & BUN 48 on admission; baseline Cr ~1.0 IV Fluids Avoid nephrotoxic medications when able. Nephrology consulted, appreciate recs -IVF Improving Rhabdomyolysis Patient presenting w/ body aches and weakness. He was also lying on the ground for 3-4 hours at home after sliding off of his bed. CK 262 on admission. IVF replacement Trend CK Continue to monitor Currently normal/resolved Acute Hyperglycemia Diabetes Mellitus Type II [Not Insulin-Dependent] Glucose 322 and anion gap 12 on arrival. hgba1c of 7.1 Given 8 units of insulin aspart in the ED. 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 Basal/bolus insulin while hospitalized Glycemic pharmacy consult as pt also on steroids, appreciate recs Hyponatremia Noted on admission at 131 Consider urine osm and electrolytes for further workup Nephrology on board as above Currently resolved Anemia Thrombocytopenia Mild thrombocytopenia resolved Continue to monitor Hypertension BP has been on the lower end on admission Given severe sepsis and concern for septic shock, held SHEET MET[employer] ENGINEER antihypertensives Home antihypertensives have since been resumed on 05/16 Continue to monitor Dyslipidemia Patient on both statin and ASA therapy 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 Continue History of Prostate Cancer Patient underwent Rezum procedure on 03/31/2023 due to severe bladder outlet obstruction and subsequently completed treatment with radiation oncology. Patient finished radiation therapy in the fall of 2022. He follows closely w/ [facility]. Patient is currently under PSA monitoring regimen. Other Chronic Medical Conditions: History of gout, BPH and season allergies --> Can continue SHEET METAL ENGINEER medications for these specific conditions. Diet: DMII DVT Prophylaxis: SQ Heparin Dispo: PT/OT recommending home with home health services Admission and Anticipated Discharge Date Admission Date: May 14, 2024 Subjective pt was seen sitting in chair at bedside. States he feels much better. Denies N/V, abdominal pain, fevers, chills or night sweats. States some stressors from friends and family. Review of Systems Review of Systems: All systems reviewed & are unremarkable except as noted in Subjective Physical Exam Physical Exam: General: Alert, oriented. Psych: Appropriate mood and affect Neuro: No gross deficits HEENT: NC/AT CV: RRR Resp: Breath sounds clear bilaterally, no increased effort of breathing. Abdomen: Soft, nontender, nondistended. Extremities: Trace edema in lower extremities bilaterally. Results & Data Results & Data Vital Signs (Past 12 Hours) Vital Signs Temp Pulse Pulse Resp BP Pulse Ox O2 Del Method 05/17/24 07:55 36.5 C 73 18 185/76 H 96 Room Air 05/17/24 07:00 74 05/17/24 03:05 36.8 C 63 18 154/80 H 94 Room Air 05/16/24 22:23 37.4 C 78 18 131/77 96 Room Air 05/16/24 21:58 84 05/16/24 21:37 37.4 C 05/16/24 21:31 73 159/92 H 96 Room Air (1) UTI (urinary tract infection) Urinary tract infection type: site unspecified Hematuria presence: without hematuria Qualified Code(s): N39.0 - Urinary tract infection, site not specified (4) Rhabdomyolysis Rhabdomyolysis type: non-traumatic Qualified Code(s): M62.82 - Rhabdomyolysis
[2024-05-17] MEDS ORDERED: guaiFENesin/DEXTROM SYRUP 100MG/10MG 5ML UDC PO PRN (08:58)
[2024-05-17] MEDS ORDERED: BENZONATATE 100 MG CAPSULE PO PRN (08:58)
[2024-05-17] MEDS ORDERED: LANTUS PER UNIT CHARGE SC SCH ×2 (09:00→21:00)
[2024-05-17] MEDS: LANTUS PER UNIT CHARGE SC SCH ×2 (09:24→20:14)
[2024-05-17] MEDS ORDERED: carvediloL 6.25 MG TAB PO SCH (10:25)
--- NOTE | 2024-05-17 11:20 | Nephrology Progress Note ---
Date of Service May 17, 2024 Assessment & Plan (1) Acute kidney injury: Plan: Patient with acute kidney injury due to ischemic ATN in setting of sepsis. Creatinine of 2.3 today, stable and a baseline of 1.2 last year. Electrolytes are stable and no signs of volume overload. Avoid nephrotoxins. Renally dose antibiotics (2) UTI (urinary tract infection): Plan: Continue cefepime per primary team. urine cultures showing E.coli. CT abdomen showed no evidence of pyonephritis. If PICC line is needs and for home antibiotics, okay to place PICC line. (3) HTN (hypertension): Plan: Will resume Diltiazem, hydrochlorothiazide triamterene and continue prazosin. Admission and Anticipated Discharge Date Admission Date: May 14, 2024 Subjective Seen for acute kidney injury. He feels better now. No fever, no nausea or vomiting. Creatinine stable. Blood pressure uptrending. Review of Systems 2 Review of Systems: All other systems were reviewed and negative except as noted in HPI Physical Exam 2 Physical Exam: General exam: Appears comfortable, no acute distress HEENT: Pupils are equal and reactive to light Neck: No JVD, neck is supple trachea is midline Respiratory system: Clear breath sounds bilaterally. Gastrointestinal: Abdomen is soft, non distended, non tender, bowel sounds are present CVS: Regular rate and rhythm. No murmurs, rubs or gallops Musculoskeletal: No joint or muscle tenderness Extremities: Non tender, no edema, peripheral pulses are present Neuro: Oriented, no tremors, no focal neurological deficits Skin: No rashes Results & Data Vital Signs (Past 12 Hours) Vital Signs Temp Pulse Pulse Resp BP Pulse Ox O2 Del Method 05/17/24 08:00 Room Air 05/17/24 07:55 36.5 C 73 18 185/76 H 96 Room Air 05/17/24 07:00 74 05/17/24 03:05 36.8 C 63 18 154/80 H 94 Room Air Laboratory Results 05/17/24 06:11 05/17/24 06:11 WBC 14.28 H RBC 3.90 L MCV 90.3 MCH 31.3 MCHC 34.7 RDW Std Deviation 42.4 RDW Coeff of Leslie 12.9 Plt Count 149 MPV 10.6 Phosphorus 2.6 Albumin 2.9 L (2) UTI (urinary tract infection) Urinary tract infection type: site unspecified Hematuria presence: without hematuria Qualified Code(s): N39.0 - Urinary tract infection, site not specified
--- NOTE | 2024-05-17 11:42 | Pharmacy Report ---
Pharmacy Glycemic Short Note 2 - Date of Service May 17, 2024 - Glycemic Short BSG Results (Last 24 hours): 05/16/24 05/16/24 05/16/24 12:07 16:55 20:02 Glucose POC Glucose 215 H 184 H 175 H 05/17/24 05/17/24 06:11 08:08 Glucose 68 L POC Glucose 70 OUTPATIENT ANTIDIABETIC REGIMEN: * Metformin 1000 mg PO BIDM * Repaglinide 0.5 mg PO TIDM HbA1c: 7.1% (12/17/22) ASSESSMENT: 05/17: * BSGs trending down the last 24h: 560-374-71wi/dL with a fasting of 70mg/dl this AM. Received 45 units of basal and 44 units of bolus insulin yesterday. * Methylprednisolone 40mg IV BID (received 1 dose yesterday) transitioned to PO prednisone 40mg daily today. Tolerating diet. Continues on antibiotics. * Lantus reduced to 10 units BID given low fasting BSG and reduction in st eroids. Novolog also loosened slightly. 05/15: * WL is a 68 year old male with presumed urosepsis (receiving Zosyn) * Patient hyperglycemic today, likely related to uncovered IV steroid administration last evening * Ordered methylprednisolone 40 mg IV BID at this time * Will utilize weight-based basal and aggressive Novolog parameters * Blood sugar of 452 mg/dL at lunch -> will give one-time IV insulin bolus PLAN FOR INPATIENT GLYCEMIC CONTROL: * Hold outpatient oral diabetes medications * Basal insulin * Lantus 10 units SC BID * Bolus insulin * NovoLog per scale ACHS or Q6hrs while NPO * Goal Range: Low 110 mg/dL - High 140 mg/dL * Correction Factor: 20 mg/dL/unit * Nutritional / Prandial insulin per carb ratio of 1 unit per 6 grams CHO consumed
[2024-05-17] MEDS: hydrALAZINE HCL 20 MG/ML VIAL IV ONE (18:17)
[2024-05-17] MEDS: POTASSIUM CHLORIDE CRTAB 20 MEQ TABCR PO SCH (19:57)
[2024-05-18] MEDS: INSULIN ASPART PER UNIT CHARGE SC SCH (00:51)
[2024-05-18 05:59] LABS: Basophils # (auto) 0.03 K/uL (0.00-0.20); Basophils % (auto) 0.2 %; Eosinophils # (auto) 0.01 K/uL (0.00-0.50); Eosinophils % (auto) 0.1 %; Hematocrit (blood only) 34.9 % (42.0-52.0); Immature Granulocytes # (auto) 0.48 K/uL (0.01-0.20); Lymphocytes # (auto) 0.58 K/uL (1.20-3.40); Lymphocytes % (auto) 4.8 %; Mean Corpuscular Hemoglobin 30.8 pg (25.0-34.0); Mean Corpuscular Hgb Conc 34.4 g/dL (32.0-36.0); Mean Corpuscular Volume 89.5 fL (80.0-100.0); Mean Platelet Volume 10.6 fL (9.4-12.4); Monocytes # (auto) 1.19 K/uL (0.11-0.59); Monocytes % (auto) 9.9 %; Neutrophils # (auto) 9.73 K/uL (1.40-6.50); Nucleated RBC # (auto) 0.02 K/uL (0.00-0.12); Nucleated RBC % (auto) 0.2 %; Platelet Count 155 K/uL (130-400); RDW Coefficient of Variation 12.7 % (11.5-14.5); White Blood Count 12.02 K/ul (4.8-10.8)
[2024-05-18 06:15] LABS: BUN Creatinine Ratio 27.1 (10-20); Bilirubin,Total 0.5 mg/dl (0.2-1.0); Creatinine Clr Calc Pharmacy 39.2 ml/min; Est GFR (African American) 37.4 ml/min; Est GFR (Non-African American) 32.3 ml/min; Globulin 2.9 gm/dl (2.5-4.0); Magnesium 1.9 mg/dl (1.7-2.4); Phosphorus 2.8 mg/dl (2.5-4.9); Potassium 3.4 mmol/L (3.5-5.1); Total Protein 5.9 gm/dl (6.0-8.3)
[2024-05-18] MEDS: NovoLIN-N (NPH) PER UNIT CHARGE SQ ONE (09:01)
[2024-05-18] MEDS: POTASSIUM CHLORIDE CRTAB 20 MEQ TABCR PO STA (09:01)
--- NOTE | 2024-05-18 09:03 | Discharge Summary ---
Discharge Summary Date of Service May 18, 2024 Principal Dx & Hospital Course #1 = Principal Diagnosis (1) UTI (urinary tract infection): (2) Severe sepsis: (3) Acute kidney injury: (4) Rhabdomyolysis: Sulaiman Damon is a 68y/o M with PMHx significant for DM type II, HTN, hyperlipidemia, COPD, degenerative joint disease, BPH, history of prostate cancer, osteoarthritis and history of gout who presented to the ED for evaluation secondary to illness. Patient presenting with increasing weakness, fatigue, body aches/chills, fever and an episode of urinary continence over the past 24 hours. He was found to have an acute UTI and severe sepsis on presentation. Of note, patient had a left leg ablation performed on 05/13 at [facility]. Severe Sepsis Bacteremia Complicated Urinary tract Infection History of Prostate Cancer Meets severe sepsis criteria on admission 2/2 tachycardia, tachypnea, leukocytosis, present source of urinary infection & lactic acidosis. Admitting labs significant for WBC 20K, lactate 3.3 and procalcitonin 72. UA suggestive of infection, urine Cx grew E coli Blood Cx 1/2 bottles grew E coli as well Biofire negative CXR showing cardiomegaly with mild pulmonary vascular congestion. CT Abd/pelvis showing perinephric stranding and stranding about the bladder, no evidence of hydronephrosis and hepatic steatosis. MRSA nares negative Treated with IV Zosyn--> IV Cefepime---> IV rocephin for 5 days while hospitalized IV fluids Discharged to complete 14 day course with po ciprofloxacin Symptoms improved significantly on day of discharge Close PCP followup recommended after discharge. Shortness of Breath & Cough Asthma & Chronic Obstructive Pulmonary Disease with Exacerbation Patient w/ some SOB and nonproductive cough at time of admission. He was saturating well on RA at 94-98% SpO2 CXR no pneumonia, repeat chest xray on 05/16 unremarkable Biofire negative Physical exam notable for some bilateral wheezing. Scheduled nebs and IV Solu-Medrol 40mg Q8H on admission Weaned down steroids as tolerated, transitioned to po prednisone 40mg daily x 5 days Home inhalers Azithromycin 500mg x 3 doses, completed while hospitalized PRN cough meds Improved on day of discharge. Discharged with 3 more days of po prednisone. Acute Kidney Injury Cr 2.69 & BUN 48 on admission; baseline Cr ~1.0 IV Fluids Avoid nephrotoxic medications when able. Nephrology consulted, recommended/stated the following on 05/17: "Patient with acute kidney injury due to ischemic ATN in setting of sepsis. Creatinine of 2.3 today, stable and a baseline of 1.2 last year. Electrolytes are stable and no signs of volume overload. Avoid nephrotoxins. Renally dose antibiotics" On day of discharge, Nephrology recommended the following: "Renal follow up next week. Bmp prior to follow up" Please ensure followup with Nephrology after discharge. Rhabdomyolysis Patient presenting w/ body aches and weakness. He was also lying on the ground for 3-4 hours at home after sliding off of his bed. CK 262 on admission. IVF replacement Trended CK to normal Currently normal/resolved Acute Hyperglycemia Diabetes Mellitus Type II [Not Insulin-Dependent] Glucose 322 and anion gap 12 on arrival. hgba1c of 7.1 Given 8 units of insulin aspart in the ED. 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 Continue History of Prostate Cancer Patient underwent Rezum procedure on 03/31/2023 due to severe bladder outlet obstruction and subsequently completed treatment with radiation oncology. Patient finished radiation therapy in the fall of 2022. He follows closely w/ [facility]. Patient is currently under PSA monitoring regimen. 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 Notes For Next Care Provider Per Nephrology: Please ensure follow up with Nephrology after discharge within the next week with needed bloodwork Please ensure Urology follow up Medication Changes From Visit ciprofloxacin 500mg BID x 9 more days Prednisone 40mg daily for 3 more days Admission HPI Per Admitting Provider Abdias Damon is a 68y/o M with PMHx significant for DM type II, HTN, hyperlipidemia, COPD, degenerative joint disease, BPH, history of prostate cancer, osteoarthritis and history of gout who presented to the ED for evaluation secondary to illness. History obtained from patient, children at bedside and associated chart review. Patient reports increasing weakness, fatigue and body aches that started last night. He reports he also is experiencing some intermittent chills and shaking. Patient has also been diaphoretic. His daughter reports that he did take his temperature last night and it was found to be around 99 F, but that was after he had already taken a dose of oral Tylenol. His daughter reports that he slid out of bed last night and fell onto his buttock region, however he did not strike his head or lose consciousness during this event. His daughter mentions that he was on the ground for approximately 4 hours or so. The patient does live at home by himself and typically ambulates with a cane as needed. Patient states he feels exceptionally weak and has not been able to ambulate well since last night. Patient denies any chest pain, but does endorse some shortness of breath and nonproductive cough. He does have a history of COPD and asthma. He denies any diarrhea or vomiting/nausea, but does endorse that he urinated himself last night - which is very unusual for him. He does not have much of an appetite, and has not been eating or drinking wall over the past 24 hours. He denies any lightheadedness or dizziness upon standing, but does report he feels "unsteady" on his feet. Patient does endorse some lower abdominal pain. Of note, patient had a left leg ablation performed on 05/13 at [facility]. Admission Exam Per Admitting Provider General: WD/WN, vitals as above, patient with chills and shakiness, sitting up in bed, conversing without issue. A+Ox3, euthymic affect. HEENT: Normocephalic, atraumatic. PERRL, conjunctivae normal, anicteric sclerae. External ear and nose normal, oropharynx normal. Respiratory: Tachypneic, decreased breath sounds bilaterally with mild wheezing, no rales, rhonchi. No accessory muscle use. Cardiovascular: Tachycardic, regular rhythm, no murmur, normal peripheral pulses, no BLE edema. Vessels: No JVD. Abdomen/GI: Normal bowel sounds, soft, mild pain and discomfort with palpation of lower abdominal region, no hepatosplenomegaly. Extremities/Musculoskeletal: No cyanosis or clubbing, extremities motor strength intact, able to move all extremities w/out issue. Neurologic: EOMI, accommodation nl, no face palsy, no dysarthria, CN's II-XI not formally tested but appear grossly intact bilaterally. Skin: No rashes, normal color, warm, diaphoretic. Patient with intact bandaging on left thigh region s/p ablation. Discharge Exam General: Alert, oriented. Psych: Appropriate mood and affect Neuro: No gross deficits HEENT: NC/AT CV: RRR Resp: Breath sounds clear bilaterally, no increased effort of breathing. Abdomen: Soft, nontender, nondistended. Extremities: Trace edema in lower extremities bilaterally. Updated Medication List Medication Instructions Recorded Confirmed Type metformin 500 mg tablet,extended 1,000 mg PO BID 06/06/22 05/14/24 History release 24 hr potassium chloride 10 mEq 10 meq PO BID 06/06/22 05/14/24 History tablet,extended release prazosin 2 mg capsule 2 mg PO BID 06/06/22 05/14/24 History repaglinide 0.5 mg tablet 0.5 mg PO TIDM 06/06/22 05/14/24 History rosuvastatin 10 mg tablet 10 mg PO QPM 06/06/22 05/14/24 History triamterene 37.5 1 cap PO QAM 06/06/22 05/14/24 History mg-hydrochlorothiazide 25 mg capsule cholecalciferol (vitamin D3) 50 50 mcg PO QAM 02/20/23 05/14/24 History mcg (2,000 unit) capsule fluticasone furoate 100 1 inh inhalation UD PRN 02/20/23 05/14/24 History mcg-vilanterol 25 mcg/dose environmental allergies inhalation powder (Breo Ellipta) levocetirizine 5 mg tablet 5 mg PO QPM 02/20/23 05/14/24 History vitamin B complex 1 tab PO QAM 02/20/23 05/14/24 History acetaminophen 500 mg tablet 1,000 mg PO BID PRN Pain 11/04/23 05/14/24 History albuterol sulfate 1.25 mg/3 mL 1.25 mg inhalation QID PRN 05/04/24 05/14/24 History solution for nebulization Shortness Of Breath Or Wheezing aspirin 81 mg tablet,delayed 81 mg PO DAILY 05/04/24 05/14/24 History release irbesartan 300 mg tablet 300 mg PO QAM 05/04/24 05/14/24 History verapamil 240 mg 24 hr 240 mg PO BID 05/04/24 05/14/24 History capsule,extended release allopurinol 300 mg tablet 300 mg PO QAM 05/14/24 05/14/24 History ciprofloxacin HCl 500 mg tablet 500 mg PO BID #18 tabs 05/18/24 Rx prednisone 20 mg tablet 40 mg (2 x 20 mg) PO DAILY #6 tabs 05/18/24 Rx Hospital Stay Data Consultations 05/14/24 17:10 ED Decision to Admit Stat 05/15/24 08:35 Consult Nephrology Routine Diagnostic Imagining Performed 05/14/24 15:38 CT abd pelvis wo con Stat Chest X-Ray 05/14/24 14:03 SINGLE VIEW CHEST CLINICAL HISTORY: Generalized weakness. FINDINGS: An AP, portable, upright chest radiograph is obtained. No prior studies are available for comparison at the time of dictation. The heart is enlarged noting atherosclerotic calcification of the thoracic aorta. There is pulmonary vascular congestion. Atelectasis is seen at the lung bases. No airspace consolidation or large pleural effusion is identified. No pneumothorax is seen. The skeletal structures are osteopenic. The bony thorax is grossly intact. IMPRESSION: Cardiomegaly with mild pulmonary vascular congestion. ACT 112: Negative or not required by law. Electronically signed by: Julián Rivera M.D. 05/14/2024 2:36 PM Abdomen/Pelvis CT 05/14/24 15:38 CT abd pelvis wo con CLINICAL HISTORY: BALDOMERO TECHNIQUE: Helical axial images of the abdomen and pelvis were obtained. Automated dose lowering techniques and/or adjustment according to patient size were utilized for this exam. This exam was performed without intravenous contrast. CT DOSE: 1332.43 mGy.cm COMPARISON: Comparison is made to CT pelvis 05/22/[address] abdomen pelvis 05/22/2023 FINDINGS: Lower chest: Bibasilar atelectasis versus scarring is seen. Liver: Hepatic steatosis is noted. Gallbladder and biliary tree: The gallbladder is contracted. No intra- or extrahepatic biliary ductal dilation. Pancreas: Unremarkable, no focal lesions. Spleen: Unremarkable. Adrenals: Unremarkable. Kidneys and ureters: Bilateral renal cysts are seen. Perinephric stranding is seen. There is no hydronephrosis. Bladder: Limited evaluation due to underdistention. Reproductive organs: Prostatomegaly is seen. Metallic markers are noted within the prostate. The appendix is unremarkable. Bowel: Unremarkable. Lymph nodes Retroperitoneal: Unremarkable. Pelvic: Unremarkable. Mesenteric: Unremarkable. Peritoneum: Normal. Vessels: Unremarkable. Abdominal wall: A fat-containing umbilical hernia is seen. Bilateral fat- containing inguinal hernias are seen. Bones: Degenerative changes in the visualized spine. Lucency in the T10 vertebral body is nonspecific and may represent a hemangioma, is unchanged from 2021. IMPRESSION: 1. Perinephric stranding and stranding about the bladder. No evidence of hydronephrosis. Clinical correlation for infectious process is recommended. 2. Hepatic steatosis. ACT 112: Negative or not required by law. Electronically signed by: Luis Hudson M.D. 05/14/2024 4:56 PM Chest X-Ray 05/16/24 20:51 XR chest 1V portable CLINICAL HISTORY: sob TECHNIQUE: Single frontal radiograph of the chest was obtained. Comparison: Comparison is made to chest radiograph 05/14/2024 FINDINGS: No lines and tubes are seen. Cardiomegaly is noted. The lungs are clear. No evidence of pleural effusion or pneumothorax. IMPRESSION: No acute chest disease. ACT 112: Negative or not required by law. Electronically signed by: Luis Hudson M.D. 05/17/2024 6:41 AM Discharge Instructions Given to Patient (Per Discharging Provider) Mr. Damon, [place] were admitted with a severe urinary tract infection. We are discharging you home with 9 more days of oral antibiotic treatment to help with that. You were also seen by the interlacer for your kidney function. They recommend following up with them in the office with repeat bloodwork. We also treated you for a COPD exacerbation. Please continue with the oral prednisone prescribed for 3 more days starting tomorrow. Please also keep close follow up with your primary care provider after discharge. Please do not hesitate to come back to the emergency room if your symptoms worsen or return. It was a pleasure taking care of you while you were here. Total Time Total Time Spent Total Time Spent (In Minutes): 65
[2024-05-18] MEDS: cefTRIAXone SODIUM 2,000 MG/50 ML BAG IV SCH (09:12)
== END 2024-05-18 18:00 | disposition home health service (06) | DRG 871 ==
LOC: ED 13:19 → EDINP 17:35 → SUATTDRO 17:35 → 2N 18:03